=== PATIENT | male | born 1940 | race Caucasian/White ===

== ENCOUNTER → 2018-09-19 | Outpatient (CLI) | payer MEDICARE, BC ==
[~2018-09-19] MED LIST: AMLODIPINE BESYL5 MG PO; BENAZEPRIL40 MG PO; COQ(10)1010 MG PO; FERROUS SU325 MG/TAB PO; FISH OIL CONC1000 MG PO; FOLIC ACID 40400 MCG PO; GLUCOSAMINE & C1 TAB PO; HCTZ 25MG25 MG PO; IBUPROFEN200 M1 PO; MULTI VITAMINS1 TAB PO; ULTRAM50 MG PO; VITAMIN C BUFF500 MG PO; ZOCOR 10MG10 MG PO; ZYLOPRIM 300MG300 MG PO
== END ==
LOC: COL.RAD 09:25
DX: Z13.6 Encounter for screening for cardiovascular disorders (principal)